=== PATIENT | female | born 1945 | race Caucasian/White ===

== ENCOUNTER 2017-11-19 21:43 | Emergency (ER) | payer SELFPAY ==
[~2017-11-19] VITALS: Ht 167.6 cm; Wt 90.9 kg
[2017-11-19] MEDS ORDERED: METHOCARBAMOL 750 MG TABLET PO ONE (22:30)
[2017-11-19] MEDS ORDERED: PLEASE ENTER ALLERGIES MC SCH (22:30)
[2017-11-19] MEDS ORDERED: METHOCARBAMOL 750 MG TABLET ONE (23:16)
[2017-11-20 00:16] VITALS: BP 130/82
== END 2017-11-20 00:17 | disposition home or self-care (01) ==
LOC: ED 23:59
DX: S39.012A Strain of muscle, fascia and tendon of lower back, initial encounter (principal); M51.37 Other intervertebral disc degeneration, lumbosacral region; W01.0XXA Fall on same level from slipping, tripping and stumbling without subsequent striking against object, initial encounter; Y93.89 Activity, other specified; Y92.098 Other place in other non-institutional residence as the place of occurrence of the external cause; Y99.8 Other external cause status
CPT/HCPCS: 72110; 72220; 99284